=== PATIENT | female | born 1995 | race Two or more races ===

== ENCOUNTER → 2022-02-15 | Outpatient (CLI) | payer MEDICAID ==
[2022-02-15 10:40] LABS: Basophils # (auto) 0 10 ^3/uL (0-0.2); Basophils % (auto) 0.3 % (0.0-2.0); Eosinophils # (auto) 0 10 ^3/uL (0-0.8); Eosinophils % (auto) 0.6 % (0.0-7.0); Hematocrit 38.9 % (36.0-46.0); Hemoglobin 12.6 g/dL (12.2-16.2); Lymphocytes # (auto) 1.5 10 ^3/uL (0.4-5.4); Lymphocytes % (auto) 28.6 % (10.0-50.0); Mean Corpuscular Hemoglobin 28.8 pg (28.0-32.0); Mean Corpuscular Hgb Conc. 32.5 g/dL (32.0-36.0); Mean Corpuscular Volume 88.7 fL (80.0-100.0); Monocytes # (auto) 0.5 10 ^3/uL (0-1.3); Monocytes % (auto) 10.1 % (0.0-12.0); Neutrophils # (auto) 3.3 10 ^3/uL (1.6-8.6); Neutrophils % (auto) 60.4 % (37.0-80.0); Red Blood Cells 4.38 10^6/uL (4.0-5.20); White Blood Cell 5.4 10^3/uL (4.4-10.8)
[2022-02-15 10:59] LABS: Alcohol, Urine < 3.0 mg/dL (0-10); Amphetamine Screen, Urine NEGATIVE (NEGATIVE); Barbiturate Scree,Urine NEGATIVE (NEGATIVE); Benzodiazephine Screen, Urine NEGATIVE (NEGATIVE); Cannabinoid Screen, Urine NEGATIVE (NEGATIVE); Cocaine Screen, Urine NEGATIVE (NEGATIVE); Opiate Scree,Urine NEGATIVE (NEGATIVE); Phencyclidine Screen, Urine NEGATIVE (NEGATIVE)
[2022-02-16 05:07] LABS: RPR Non Reactive (Non Reactive)
== END | disposition home or self-care (01) ==
LOC: LAB 09:17
PROVIDERS: ATTEND Obstetrics & Gynecology
DX: Z34.80 Encounter for supervision of other normal pregnancy, unspecified trimester (principal)
CPT/HCPCS: 36415; 80307; 83036; 84112; 84144; 84702; 85025; 86592; 86703; 86762; 86850; 86900; 86901; 87086; 87340

== ENCOUNTER 2022-06-21 13:04 | Observation (INO) | payer OTHER | END 2022-06-21 15:28 | disposition home or self-care (01) | LOC: LDRP 13:04 → UNDOADMOB 13:04 → LDRP 14:36 | PROVIDERS: ADMIT Obstetrics & Gynecology; ATTEND Obstetrics & Gynecology | DX: O24.419 Gestational diabetes mellitus in pregnancy, unspecified control (principal); O26.893 Other specified pregnancy related conditions, third trimester; H53.8 Other visual disturbances; Z3A.30 30 weeks gestation of pregnancy | CPT/HCPCS: 59025; 76818; 81002; 82948; 82962; 94760; G0378 ==

== ENCOUNTER 2022-06-27 11:45 | Observation (INO) | payer OTHER ==
[2022-07-03] MEDS ORDERED: GLYB2.5T8 PO (11:35)
== END 2022-07-03 11:42 | disposition home or self-care (01) ==
LOC: UNDOADMOB 07-03 10:09 → LDRP 07-03 10:09 → UNDODISOB 07-03 11:42
PROVIDERS: ADMIT Obstetrics & Gynecology; ATTEND Obstetrics & Gynecology
DX: O24.419 Gestational diabetes mellitus in pregnancy, unspecified control (principal); Z3A.32 32 weeks gestation of pregnancy
CPT/HCPCS: 59025; 76818; 81002; 82948; 82962; 94760; G0378

== ENCOUNTER 2022-07-06 12:45 | Observation (INO) | payer MEDICAID ==
[~2022-07-06 12:45] MED LIST: GLYB2.5T8 PO
[2022-07-06] MEDS ORDERED: PREN-96 PO (14:17)
== END 2022-07-06 14:24 | disposition home or self-care (01) ==
LOC: LDRP 12:45 → UNDOADMOB 12:45 → LDRP 13:10
PROVIDERS: ADMIT Obstetrics & Gynecology; ATTEND Obstetrics & Gynecology
DX: O24.419 Gestational diabetes mellitus in pregnancy, unspecified control (principal); Z3A.32 32 weeks gestation of pregnancy
CPT/HCPCS: 59025; 76818; 81002; 82948; 82962; G0378

== ENCOUNTER 2022-07-10 09:53 | Observation (INO) | payer MEDICAID ==
[~2022-07-10 09:53] MED LIST changes: +PREN-96 PO
[2022-07-10] MEDS ORDERED: METF-370 PO (10:50)
== END 2022-07-10 10:58 | disposition home or self-care (01) ==
LOC: UNDOADMOB 09:53 → LDRP 09:53 → UNDODISOB 10:58
PROVIDERS: ADMIT Obstetrics & Gynecology; ATTEND Obstetrics & Gynecology
DX: O24.419 Gestational diabetes mellitus in pregnancy, unspecified control (principal); Z3A.33 33 weeks gestation of pregnancy
CPT/HCPCS: 59025; 76818; 81002; 82948; 82962; 94760; G0378

== ENCOUNTER 2022-07-13 09:29 | Observation (INO) | payer MEDICAID ==
[~2022-07-13 09:29] MED LIST changes: -GLYB2.5T8 PO; +METF-370 PO
== END 2022-07-13 10:45 | disposition home or self-care (01) ==
LOC: LDRP 09:29
PROVIDERS: ADMIT Obstetrics & Gynecology; ATTEND Obstetrics & Gynecology
DX: O24.419 Gestational diabetes mellitus in pregnancy, unspecified control (principal); Z3A.33 33 weeks gestation of pregnancy
CPT/HCPCS: 59025; 76818; 81002; 82948; 82962; G0378

== ENCOUNTER 2022-07-17 07:34 | Observation (INO) | payer MEDICAID | END 2022-07-17 09:17 | disposition home or self-care (01) | LOC: UNDOADMOB 08:23 → LDRP 08:23 → UNDODISOB 09:17 | PROVIDERS: ADMIT Obstetrics & Gynecology; ATTEND Obstetrics & Gynecology | DX: O24.419 Gestational diabetes mellitus in pregnancy, unspecified control (principal); Z3A.34 34 weeks gestation of pregnancy | CPT/HCPCS: 59025; 76818; 81002; 82948; 82962; 94760; G0378 ==

== ENCOUNTER 2022-07-23 08:13 | Observation (INO) | payer MEDICAID | END 2022-07-23 15:40 | disposition home or self-care (01) | LOC: LDRP 14:28 → UNDOADMOB 14:28 → LDRP 14:50 | PROVIDERS: ADMIT Obstetrics & Gynecology Obstetrics; ATTEND Obstetrics & Gynecology Obstetrics | DX: O24.419 Gestational diabetes mellitus in pregnancy, unspecified control (principal); Z3A.35 35 weeks gestation of pregnancy | CPT/HCPCS: 59025; 76818; 81002; 82948; 82962; 94760; G0378 ==

== ENCOUNTER → 2022-07-25 | Outpatient (CLI) | payer MEDICAID ==
[2022-07-25 09:09] LABS: Basophils # (auto) 0 10 ^3/uL (0-0.2); Basophils % (auto) 0.4 % (0.0-2.0); Eosinophils # (auto) 0.1 10 ^3/uL (0-0.8); Eosinophils % (auto) 1.8 % (0.0-7.0); Hematocrit 36.9 % (36.0-46.0); Hemoglobin 12.5 g/dL (12.2-16.2); Lymphocytes # (auto) 1.7 10 ^3/uL (0.4-5.4); Lymphocytes % (auto) 29.2 % (10.0-50.0); Mean Corpuscular Hemoglobin 30.5 pg (28.0-32.0); Mean Corpuscular Hgb Conc. 33.8 g/dL (32.0-36.0); Mean Corpuscular Volume 90.2 fL (80.0-100.0); Monocytes # (auto) 0.5 10 ^3/uL (0-1.3); Monocytes % (auto) 8.1 % (0.0-12.0); Neutrophils # (auto) 3.5 10 ^3/uL (1.6-8.6); Neutrophils % (auto) 60.5 % (37.0-80.0); Nucleated Red Blood Cells % 0.1 %; Red Blood Cells 4.09 10^6/uL (4.0-5.20); Red Cell Distribution Width 14.2 % (11.8-14.3); White Blood Cell 5.8 10^3/uL (4.4-10.8)
[2022-07-26 05:07] LABS: RPR Non Reactive (Non Reactive)
== END | disposition home or self-care (01) ==
LOC: LAB 08:56
PROVIDERS: ATTEND Obstetrics & Gynecology
DX: Z34.80 Encounter for supervision of other normal pregnancy, unspecified trimester (principal); Z3A.00 Weeks of gestation of pregnancy not specified
CPT/HCPCS: 36415; 84112; 85025; 86592

== ENCOUNTER 2022-07-30 08:59 | Observation (INO) | payer MEDICAID | END 2022-07-31 11:16 | disposition home or self-care (01) | LOC: UNDOADMOB 07-31 09:59 → LDRP 07-31 09:59 → UNDODISOB 07-31 11:16 | PROVIDERS: ADMIT Obstetrics & Gynecology Obstetrics; ATTEND Obstetrics & Gynecology Obstetrics | DX: O24.419 Gestational diabetes mellitus in pregnancy, unspecified control (principal); Z3A.36 36 weeks gestation of pregnancy | CPT/HCPCS: 59025; 81002; 82948; 82962; 94760; G0378 ==

== ENCOUNTER → 2022-07-31 | Outpatient (CLI) | payer MEDICAID ==
[2022-07-31 09:32] LABS: Basophils # (auto) 0 10 ^3/uL (0-0.2); Basophils % (auto) 0.3 % (0.0-2.0); Eosinophils # (auto) 0.1 10 ^3/uL (0-0.8); Eosinophils % (auto) 1.5 % (0.0-7.0); Hemoglobin 12.2 g/dL (12.2-16.2); Lymphocytes # (auto) 2.2 10 ^3/uL (0.4-5.4); Lymphocytes % (auto) 29.5 % (10.0-50.0); Mean Corpuscular Hemoglobin 30.4 pg (28.0-32.0); Mean Corpuscular Hgb Conc. 33.8 g/dL (32.0-36.0); Mean Corpuscular Volume 89.8 fL (80.0-100.0); Monocytes # (auto) 0.6 10 ^3/uL (0-1.3); Monocytes % (auto) 8.1 % (0.0-12.0); Neutrophils # (auto) 4.5 10 ^3/uL (1.6-8.6); Neutrophils % (auto) 60.6 % (37.0-80.0); Nucleated Red Blood Cells % 0.1 %; Red Blood Cells 4.01 10^6/uL (4.0-5.20); Red Cell Distribution Width 14.2 % (11.8-14.3); White Blood Cell 7.4 10^3/uL (4.4-10.8)
== END | disposition home or self-care (01) ==
LOC: LAB 09:24
PROVIDERS: ATTEND Obstetrics & Gynecology
DX: Z34.80 Encounter for supervision of other normal pregnancy, unspecified trimester (principal); Z3A.00 Weeks of gestation of pregnancy not specified
CPT/HCPCS: 36415; 76818; 85025

== ENCOUNTER 2022-08-03 08:25 | Observation (INO) | payer MEDICAID | END 2022-08-03 12:25 | disposition home or self-care (01) | LOC: LDRP 10:36 | PROVIDERS: ADMIT Obstetrics & Gynecology; ATTEND Obstetrics & Gynecology | DX: O24.419 Gestational diabetes mellitus in pregnancy, unspecified control (principal); O26.893 Other specified pregnancy related conditions, third trimester; H53.8 Other visual disturbances; Z3A.36 36 weeks gestation of pregnancy | CPT/HCPCS: 59025; 76818; 81002; 82948; 82962; 94760; G0378 ==

== ENCOUNTER 2022-08-07 08:13 | Observation (INO) | payer MEDICAID | END 2022-08-07 12:39 | disposition home or self-care (01) | LOC: UNDOADMOB 10:42 → LDRP 10:42 | PROVIDERS: ADMIT Obstetrics & Gynecology; ATTEND Obstetrics & Gynecology | DX: O24.419 Gestational diabetes mellitus in pregnancy, unspecified control (principal); O26.893 Other specified pregnancy related conditions, third trimester; N89.8 Other specified noninflammatory disorders of vagina; Z3A.37 37 weeks gestation of pregnancy | CPT/HCPCS: 59025; 76818; 81002; 82948; 82962; G0378 ==

== ENCOUNTER 2022-08-10 09:40 | Observation (INO) | payer MEDICAID | END 2022-08-10 11:13 | disposition home or self-care (01) | LOC: LDRP 09:40 → UNDOADMOB 09:41 → LDRP 09:41 → UNDODISOB 11:13 | PROVIDERS: ADMIT Obstetrics & Gynecology; ATTEND Obstetrics & Gynecology | DX: O24.419 Gestational diabetes mellitus in pregnancy, unspecified control (principal); Z3A.37 37 weeks gestation of pregnancy; Z98.891 History of uterine scar from previous surgery | CPT/HCPCS: 59025; 76818; 81002; 82948; 82962; 94760; G0378 ==

== ENCOUNTER 2022-08-14 12:43 | Observation (INO) | payer MEDICAID | END 2022-08-14 14:46 | disposition home or self-care (01) | LOC: UNDOADMOB 13:14 → LDRP 13:14 | PROVIDERS: ADMIT Obstetrics & Gynecology; ATTEND Obstetrics & Gynecology | DX: O24.419 Gestational diabetes mellitus in pregnancy, unspecified control (principal); Z3A.38 38 weeks gestation of pregnancy; Z98.891 History of uterine scar from previous surgery | CPT/HCPCS: 59025; 76818; 81002; 82948; 82962; 94760; G0378 ==

== ENCOUNTER 2022-08-18 03:54 | Inpatient (IN) | payer MEDICAID ==
[2022-08-16 08:41] LABS: Urine Bacteria FEW /hpf (None Seen); Urine Blood Negative /uL (Negative); Urine Mucus FEW (None Seen); Urine Specific Gravity 1.019 (1.001-1.035); Urine WBC 17 /hpf (0 - 5)
[2022-08-16 08:55] LABS: Alcohol, Urine < 3.0 mg/dL (0-10); Amphetamine Screen, Urine NEGATIVE (NEGATIVE); Barbiturate Scree,Urine NEGATIVE (NEGATIVE); Benzodiazephine Screen, Urine NEGATIVE (NEGATIVE); Cannabinoid Screen, Urine NEGATIVE (NEGATIVE); Cocaine Screen, Urine NEGATIVE (NEGATIVE); Opiate Scree,Urine NEGATIVE (NEGATIVE); Phencyclidine Screen, Urine NEGATIVE (NEGATIVE)
[2022-08-16 09:15] LABS: Basophils # (auto) 0 10 ^3/uL (0-0.2); Basophils % (auto) 0.2 % (0.0-2.0); Eosinophils # (auto) 0.1 10 ^3/uL (0-0.8); Hematocrit 35.6 % (36.0-46.0); Hemoglobin 12.3 g/dL (12.2-16.2); Lymphocytes % (auto) 30.8 % (10.0-50.0); Mean Corpuscular Hemoglobin 31.1 pg (28.0-32.0); Mean Corpuscular Hgb Conc. 34.6 g/dL (32.0-36.0); Mean Corpuscular Volume 89.9 fL (80.0-100.0); Monocytes # (auto) 0.6 10 ^3/uL (0-1.3); Monocytes % (auto) 8.6 % (0.0-12.0); Neutrophils # (auto) 3.8 10 ^3/uL (1.6-8.6); Neutrophils % (auto) 59.4 % (37.0-80.0); Nucleated Red Blood Cells % 0.1 %; Red Blood Cells 3.96 10^6/uL (4.0-5.20); Red Cell Distribution Width 14.4 % (11.8-14.3); White Blood Cell 6.5 10^3/uL (4.4-10.8)
[2022-08-16 09:22] LABS: INR 0.95 (0.9-1.15); Partial Thromboplastin Time 27.3 sec (24.6-33.4)
[2022-08-16 09:23] LABS: Albumin 2.8 g/dL (3.4-5.0); Calcium 7.8 mg/dL (8.5-10.1); Potassium 3.6 mmol/L (3.5-5.1)
[2022-08-16 09:26] LABS: BUN/Creatinine Ratio 15.8; Bilirubin, Total 0.4 mg/dL (0.2-1.0); Total Protein 6.7 g/dL (6.4-8.2)
[2022-08-17 08:06] LABS: RPR Non Reactive (Non Reactive)
[~2022-08-18] VITALS: Ht 162.6 cm; Wt 85.7 kg
[2022-08-18] VITALS (20 sets, daily range): BP systolic 92–122; BP diastolic 45–71
[2022-08-18] MEDS ORDERED: LACTATED RINGER'S 1,000 ML IV ONE (04:00)
[2022-08-18] MEDS ORDERED: ceFAZolin 1GM/50ML 50 ML IV ONE ×2 (04:00→07:00)
[2022-08-18] MEDS: LACTATED RINGER'S 1,000 ML IV SCH ×3 (05:17→23:40)
[2022-08-18] MEDS ORDERED: oxyTOCIN 10 UNIT/ML 10ML VIAL ONE (07:15)
[2022-08-18] MEDS ORDERED: PHENYLEPHRINE HCL 10 MG/ML VL ONE (07:15)
[2022-08-18] MEDS ORDERED: fentaNYL CITRATE 100 MCG/2 ML VL ONE (07:15)
[2022-08-18] MEDS ORDERED: ePHEDrine SULFATE 50 MG/ML AMP ONE (07:15)
[2022-08-18] MEDS ORDERED: GLYCOPYRROLATE 0.2 MG/ML 1ML VIAL ONE (07:15)
[2022-08-18] MEDS ORDERED: ONDANSETRON HCL 4 MG/2 ML VIAL ONE (07:15)
[2022-08-18] MEDS ORDERED: MORPHINE SULF PF 5 MG/10 ML VIAL ONE (07:15)
[2022-08-18] MEDS ORDERED: BUPIVACAINE/DEXTROSE MPF 0.75% 2 ML AMP IT ONE (07:20)
[2022-08-18] MEDS ORDERED: DOCU-94 PO (08:24)
[2022-08-18] MEDS ORDERED: HYDR-4902 PO (08:24)
[2022-08-18] MEDS ORDERED: IBUP800T27 PO (08:24)
[2022-08-18] MEDS ORDERED: ONDANSETRON HCL 4 MG/2 ML VIAL IV PRN ×3 (08:30→08:45)
[2022-08-18] MEDS ORDERED: LACT. RINGERS/OXYTOCIN 20UNITS 1,000 ML IV ONE (08:30)
[2022-08-18] MEDS ORDERED: ceFAZolin 1GM/50ML 50 ML IV SCH (08:30)
[2022-08-18] MEDS ORDERED: GUM (CHEWING) 1 GUM CHEW CHEW ONE (08:30)
[2022-08-18] MEDS ORDERED: KETOROLAC TROMETH 30 MG/ML 1ML VIAL IV PRN (08:45)
[2022-08-18] MEDS ORDERED: NALOXONE HCL 0.4 MG/ML VIAL IV PRN (08:45)
[2022-08-18] MEDS ORDERED: KETOROLAC TROMETH 30 MG/ML 1ML VIAL IV ONE (08:45)
[2022-08-18] MEDS ORDERED: FAMOTIDINE (10MG/ML) 2ML VL IV PRN (08:45)
[2022-08-18] MEDS ORDERED: diphenhdrAMINE HCL 50 MG/1 ML VL IV PRN (08:45)
[2022-08-18] MEDS ORDERED: DexAMETHasone SOD PHOS 10MG/1ML VIAL INJ IV PRN (08:45)
[2022-08-18] MEDS: ACETAMINOPHEN IV 1000 MG/100ML (10MG/ML) IV PRN ×2 (11:45→19:58)
[2022-08-18] MEDS: ceFAZolin 1GM/50ML 50 ML IV SCH ×3 (15:16→23:27)
[2022-08-18] MEDS ORDERED: HYDROmorphone HCL 2 MG/ML VL/or syr IV ONE (17:15)
[2022-08-18 21:12] LABS: Basophils # (auto) 0 10 ^3/uL (0-0.2); Basophils % (auto) 0.4 % (0.0-2.0); Eosinophils # (auto) 0.1 10 ^3/uL (0-0.8); Hemoglobin 12.3 g/dL (12.2-16.2); Lymphocytes # (auto) 1.6 10 ^3/uL (0.4-5.4); Lymphocytes % (auto) 16.1 % (10.0-50.0); Mean Corpuscular Hemoglobin 31.1 pg (28.0-32.0); Mean Corpuscular Hgb Conc. 34.3 g/dL (32.0-36.0); Mean Corpuscular Volume 90.6 fL (80.0-100.0); Monocytes # (auto) 0.9 10 ^3/uL (0-1.3); Monocytes % (auto) 9.2 % (0.0-12.0); Neutrophils # (auto) 7.1 10 ^3/uL (1.6-8.6); Neutrophils % (auto) 73.3 % (37.0-80.0); Red Blood Cells 3.97 10^6/uL (4.0-5.20); Red Cell Distribution Width 14.5 % (11.8-14.3); White Blood Cell 9.7 10^3/uL (4.4-10.8)
[2022-08-19] VITALS (12 sets, daily range): BP systolic 105–121; BP diastolic 66–78
[2022-08-19 06:30] LABS: Basophils # (auto) 0.1 10 ^3/uL (0-0.2); Basophils % (auto) 0.6 % (0.0-2.0); Eosinophils # (auto) 0.1 10 ^3/uL (0-0.8); Eosinophils % (auto) 0.9 % (0.0-7.0); Hematocrit 37.2 % (36.0-46.0); Hemoglobin 12.6 g/dL (12.2-16.2); Lymphocytes # (auto) 1.2 10 ^3/uL (0.4-5.4); Lymphocytes % (auto) 12.4 % (10.0-50.0); Mean Corpuscular Hemoglobin 30.7 pg (28.0-32.0); Mean Corpuscular Hgb Conc. 33.8 g/dL (32.0-36.0); Mean Corpuscular Volume 90.8 fL (80.0-100.0); Monocytes # (auto) 0.8 10 ^3/uL (0-1.3); Neutrophils # (auto) 7.7 10 ^3/uL (1.6-8.6); Neutrophils % (auto) 78.1 % (37.0-80.0); Red Cell Distribution Width 14.3 % (11.8-14.3); White Blood Cell 9.8 10^3/uL (4.4-10.8)
[2022-08-19] MEDS: ceFAZolin 1GM/50ML 50 ML IV SCH (07:31)
[2022-08-19] MEDS: LACTATED RINGER'S 1,000 ML IV SCH (07:38)
[2022-08-19] MEDS ORDERED: HYDROcodone-ACET 5/325MG TAB PO PRN ×2 (09:30)
[2022-08-19] MEDS: DOCUSATE SOD 100 MG CAP PO SCH ×2 (10:00→21:47)
[2022-08-19] MEDS ORDERED: DOCUSATE CALCIUM 240 MG CAP PO SCH (10:00)
[2022-08-19] MEDS: IBUPROFEN 800 MG TAB PO PRN ×2 (11:34→21:46)
[2022-08-19] MEDS: SIMETHICONE 80 MG CHEWABLE TABLET PO SCH ×3 (12:38→21:47)
[2022-08-19] MEDS ORDERED: BISACODYL 10 MG RECT SUPP PR PRN (18:45)
[2022-08-19] MEDS ORDERED: TETANUS-DIPTH-ACEL PERTUSSIS 0.5ML SYR Tdap IM ONE (23:45)
[2022-08-20] MEDS: IBUPROFEN 800 MG TAB PO PRN (03:00)
[2022-08-20 03:07] VITALS: BP 107/68
[2022-08-20] MEDS: SIMETHICONE 80 MG CHEWABLE TABLET PO SCH (05:51)
[2022-08-20 07:15] VITALS: BP 116/67
== END 2022-08-20 10:10 | disposition home or self-care (01) | DRG 540 ==
LOC: LDRP 03:54
PROVIDERS: ADMIT Obstetrics & Gynecology; ATTEND Obstetrics & Gynecology
PROC: 10D00Z1 Extraction of Products of Conception, Low, Open Approach (ICD-10-PCS; principal; 2022-08-18 07:23)
DX: O34.219 Maternal care for unspecified type scar from previous cesarean delivery (principal); Z20.822 Contact with and (suspected) exposure to COVID-19; Z37.0 Single live birth; Z3A.39 39 weeks gestation of pregnancy
CPT/HCPCS: 36415; 59025; 80053; 80307; 81001; 82948; 82962; 84112; 85025; 85610; 85730; 86592; 86850; 86900; 86901; 94760; 94762; 96360; 96361; 96366; G0378; J0131; J0690; J2405; J2590; J3490

== ENCOUNTER → 2024-09-08 | Outpatient (CLI) | payer MEDICAID ==
[~2024-09-08] MED LIST changes: +DOCU-94 PO; +HYDR-4902 PO; +IBUP-1456 PO
[2024-09-08 11:01] LABS: Basophils # (auto) 0 10 ^3/uL (0-0.2); Basophils % (auto) 0.5 % (0.0-2.0); Eosinophils # (auto) 0.1 10 ^3/uL (0-0.8); Eosinophils % (auto) 1.9 % (0.0-7.0); Hematocrit 38.3 % (36.0-46.0); Hemoglobin 12.9 g/dL (12.2-16.2); Lymphocytes # (auto) 2.5 10 ^3/uL (0.4-5.4); Lymphocytes % (auto) 39.6 % (10.0-50.0); Mean Corpuscular Hemoglobin 29.2 pg (28.0-32.0); Mean Corpuscular Hgb Conc. 33.7 g/dL (32.0-36.0); Mean Corpuscular Volume 86.6 fL (80.0-100.0); Monocytes # (auto) 0.4 10 ^3/uL (0-1.3); Neutrophils # (auto) 3.2 10 ^3/uL (1.6-8.6); Nucleated Red Blood Cells % 0.1 %; Platelet Count (auto) 355 10^3/uL (140-450); Red Blood Cells 4.42 10^6/uL (4.0-5.20); Red Cell Distribution Width 13.3 % (11.8-14.3); White Blood Cell 6.4 10^3/uL (4.4-10.8)
[2024-09-08 11:32] LABS: Alanine Aminotransferase 12 U/L (7-40); Alkaline Phosphatase 56 U/L (46-116); Anion Gap 7 (5-15); BUN/Creatinine Ratio 12.9 (10.0-20.0); Calcium 9.5 mg/dL (8.7-10.4); Carbon Dioxide 24 mmol/L (20-31); Glucose 91 mg/dL (74-106); Potassium 4.4 mmol/L (3.5-5.1); Sodium 138 mmol/L (136-145)
[2024-09-08 11:33] LABS: Aspartate Aminotransferase 13 U/L (13-40); LDL Cholesterol 69 mg/dL (< 100)
[2024-09-08 11:34] LABS: Albumin 4.4 g/dL (3.2-4.8); Bilirubin, Total 0.3 mg/dL (0.2-1.0); Blood Urea Nitrogen 8 mg/dL (9-23); Chloride 107 mmol/L (98-107); Cholesterol 164 mg/dL (< 200); HDL Cholesterol 35 mg/dL (40-59); Total Protein 7.3 g/dL (5.7-8.2); Triglycerides 352 mg/dL (< 150)
[2024-09-08 11:58] LABS: Urine Bacteria FEW /hpf (None Seen); Urine Blood 1+ /uL (Negative); Urine Clarity Clear (Clear); Urine Color Light-Yellow (Yellow); Urine Mucus FEW (None Seen); Urine Protein, UAD Negative (Negative); Urine Specific Gravity 1.018 (1.001-1.035); Urine Squamous Epithelial Cell FEW /hpf (<5); Urine Urobilinogen Normal (Negative); Urine WBC 1 /HPF (0-5); Urine pH 5.5 (5.0-9.0)
== END | disposition home or self-care (01) ==
LOC: LAB 08:57
PROVIDERS: ATTEND Internal Medicine
DX: R73.09 Other abnormal glucose (principal)
CPT/HCPCS: 36415; 80053; 80061; 81001; 82043; 82306; 82607; 83036; 84443; 85025

== ENCOUNTER 2025-02-25 08:29 | Day surgery (SDC) | payer MEDICAID ==
[2025-02-18 10:28] LABS: Hematocrit 41.0 % (36.0-46.0); Hemoglobin 14.0 g/dL (12.2-16.2); Mean Corpuscular Hemoglobin 29.5 pg (28.0-32.0); Mean Corpuscular Volume 86.1 fL (80.0-100.0); Nucleated Red Blood Cells % 0.1 %
[2025-02-18 10:43] LABS: INR 0.97 (0.9-1.15); Partial Thromboplastin Time 26.6 SEC (24.5-34.5); Prothrombin Time 10.3 sec (9.3-11.8)
[2025-02-18 10:49] LABS: Urine Protein, UAD Negative (Negative)
[2025-02-18 10:52] LABS: Alanine Aminotransferase 21 U/L (7-40); Albumin 4.6 g/dL (3.2-4.8); Alkaline Phosphatase 59 U/L (46-116); Anion Gap 9 (5-15); BUN/Creatinine Ratio 13.9 (10.0-20.0); Blood Urea Nitrogen 11 mg/dL (9-23); Calcium 10.2 mg/dL (8.7-10.4); Carbon Dioxide 27 mmol/L (20-31); Chloride 104 mmol/L (98-107); Potassium 4.2 mmol/L (3.5-5.1); Sodium 140 mmol/L (136-145); Total Protein 7.8 g/dL (5.7-8.2)
[2025-02-18 10:53] LABS: Bilirubin, Total 0.3 mg/dL (0.2-1.0)
[2025-02-18 11:01] LABS: Glucose 117 mg/dL (74-106)
[~2025-02-25] VITALS: Ht 162.6 cm; Wt 81.6 kg
[~2025-02-25 08:29] MED LIST changes: +ACE650RS PR; -DOCU-94 PO; -HYDR-4902 PO; -IBUP-1456 PO; -METF-370 PO; +MULT-683 OR; -PREN-96 PO
[2025-02-25] MEDS ORDERED: ceFAZolin 2 GM/D5W50ml 50 ML IV ONE (09:28)
[2025-02-25] MEDS ORDERED: fentaNYL CITRATE 100 MCG/2 ML VL ONE (10:15)
[2025-02-25] MEDS ORDERED: ONDANSETRON HCL 4 MG/2 ML VIAL ONE (10:26)
[2025-02-25] MEDS ORDERED: HYDROmorphone HCL 2 MG/ML VL/or syr ONE (10:27)
[2025-02-25] MEDS: BUPIVACAINE 0.5% P/F INJ 10 ML VIAL ONE (10:37)
[2025-02-25] MEDS: LIDOCAINE W/ EPINEPHRINE 1% 20ML VIAL ONE (10:37)
[2025-02-25 10:56] VITALS: PULSE 91; RESP 15; TEMP 97.4; O2SAT 100
[2025-02-25] MEDS ORDERED: HYDROmorphone HCL 2 MG/ML VL/or syr IV PRN (11:15)
[2025-02-25] MEDS ORDERED: ACETAMINOPHEN IV 1000 MG/100ML (10MG/ML) IV PRN (11:15)
[2025-02-25] MEDS ORDERED: MEPERIDINE HCL (25 MG/ML) 1ML VIAL IV PRN (11:15)
[2025-02-25] MEDS ORDERED: diphenhdrAMINE HCL 50 MG/1 ML VL IV ONE (11:45)
[2025-02-25] MEDS: ONDANSETRON HCL 4 MG/2 ML VIAL IV ONE (11:52)
[2025-02-25] MEDS: diphenhdrAMINE HCL 50 MG/1 ML VL ONE (11:55)
[2025-02-25 12:15] VITALS: BP 128/82; PULSE 80; RESP 16; O2SAT 97
--- NOTE | 2025-02-26 09:42 | DVHOP2 ---
Operative Report - 2 Report Details Date: 02/26/25 Preop Diagnosis: right upper thigh mass Postop Diagnosis: RIGHT UPPER THIGH MASS Surgeon: Dr. Jose Kamara DNP Anesthesiologist: Dr. Andrews Anesthesia: Mac, Local (Local anesthesia with a 1:1 mixture of 1% lidocaine and 0.25% Marcaine.) Consent: The patient was informed of the risks and benefits of the procedure. These include but are not limited to complications of anesthesia, postoperative infection, incomplete relief of symptoms, recurrence of symptoms, damage to blood vessels, nerves and tendons, deep venous thrombosis, pulmonary embolism and possible need for repeat surgery in the future. Name of Procedure Performed excision of right upper thigh mass Procedure Details Procedure Details: The patient was placed in the supine position. The right upper thigh was prepped and draped in a sterile fashion. Local anesthetic was infiltrated into the area. A horizontal incision was made, and a lipoma was dissected and removed in its entirety. The specimen was sent to pathology. The wound was irrigated with normal saline. The pocket was closed with Monocryl sutures. Skin was wendy roximated with 3-0 Monocryl sutures, steri-strips, and dermabond. The area was dressed with Kerlix and an Tristen bandage. All blade, needle, and sponge counts were correct. The patient was transferred to the recovery unit in stable condition. Specimen: right upper thigh mass Condition Good Disposition Home VICTOR MANUEL KAMARA NP Feb 26, 2025 09:42
== END 2025-02-25 11:19 | disposition home or self-care (01) ==
LOC: SUR 08:29
PROVIDERS: ATTEND Surgery
DX: D17.23 Benign lipomatous neoplasm of skin and subcutaneous tissue of right leg (principal); E66.9 Obesity, unspecified; Z68.31 Body mass index [BMI] 31.0-31.9, adult; Z79.899 Other long term (current) drug therapy; Z98.891 History of uterine scar from previous surgery; Z98.890 Other specified postprocedural states
CPT/HCPCS: 27337; 36415; 80053; 81001; 84702; 85025; 85610; 85730; 88305; J0690; J1100; J1171; J1200; J2405; J3010; J3490